=== PATIENT | female | born 1935 | race Two or more races ===

== ENCOUNTER 2018-03-02 14:21 | Emergency (ER) | payer MEDICARE, OTHER ==
[~2018-03-02] VITALS: Ht 157.5 cm; Wt 59.0 kg
[2018-03-02] MEDS ORDERED: BENZONATATE 100 MG CAPSULE. PO ONE (15:00)
[2018-03-02] MEDS ORDERED: ACETAMINOPHEN 500 MG TABLET PO ONE (15:00)
[2018-03-02] MEDS ORDERED: VANCOMYCIN PER PHARMACY MC ONE (15:00)
[2018-03-02] MEDS ORDERED: IPRATRPIUM/ALBUTEROL 0.5/2.5MG 3 ML NEBU. NEB ONE (15:00)
[2018-03-02] MEDS ORDERED: methylPREDNISolone SOD SUCC PF 125 MG/2 ML VIAL. IV ONE (15:00)
[2018-03-02] MEDS ORDERED: PIPERACILLIN/TAZOBACTAM 4.5 GM in IV NORMAL SALINE 100ML 100 ML IV ONE (15:15)
[2018-03-02] MEDS ORDERED: IV NORMAL SALINE 1000ML BAG 1,000 ML IV SCH (15:15)
[2018-03-02] MEDS ORDERED: VANCOMYCIN 1.5 GM in IV NORMAL SALINE 500ML BAG 500 ML IV ONE (15:15)
[2018-03-02 15:16] LABS: BASO # 0.1 x10^3/uL (0.0-0.2); BASO % 1 % (0-3); EOS # 0.1 x10^3/uL (0.0-0.7); EOS % 1 % (0-3); HEMATOCRIT 36.5 % (36.0-47.0); HEMOGLOBIN 12.8 g/dL (12.0-15.5); LYMPH # 1.5 x10^3/uL (1.0-4.8); LYMPH % 17 % (24-48); MEAN CORPUSCULAR HEMOGLOBIN 31 pg (25-35); MEAN CORPUSCULAR HGB CONC 35 g/dL (31-37); MEAN CORPUSCULAR VOLUME 89 fL (79-100); MONO # 0.8 x10^3/uL (0.0-1.1); MONO % 9 % (0-9); NEUT # 6.4 x10^3uL (1.8-7.7); NEUT % 73 % (31-73); PLATELET COUNT 307 x10^3/uL (140-400); RED BLOOD COUNT 4.09 x10^6/uL (3.50-5.40); RED CELL DISTRIBUTION WIDTH 13.3 % (11.5-14.5); WHITE BLOOD COUNT 8.8 x10^3/uL (4.0-11.0)
--- NOTE | 2018-03-02 15:24 | RAD ---
Indication:COUGH X2 MONTH OFF AND ON TECHNIQUE:Portable AP chest X-ray COMPARISON:08/15/2011 FINDINGS: Heart is normal in size. patchy opacity in the left lung base. No pneumothorax or pleural effusion. Visualized bony thorax within normal limits. IMPRESSION: Left lung base/in the findings may be secondary to scarring, subsegmental atelectasis, aspiration or pneumonia. Electronically signed by: Chester Gregory DO (03/02/2018 3:20 PM) [id number]
[2018-03-02 15:38] LABS: CALCIUM 9.3 mg/dL (8.5-10.1); CREATININE 0.8 mg/dL (0.6-1.0); GFR 68.8
[2018-03-02 15:44] LABS: ALBUMIN 3.6 g/dL (3.4-5.0); ALBUMIN/GLOBULIN RATIO 0.8 (1.0-1.7); TOTAL BILIRUBIN 0.3 mg/dL (0.2-1.0); TOTAL PROTEIN 7.9 g/dL (6.4-8.2)
--- NOTE | 2018-03-02 15:47 | EKG ---
[facility] [address] [place] [address] Test Date: 2018-03-02 Test Time: 15:19:25 Pat Name: CHRISTIAN HERNANDEZ Department: Room: Gender: F [employer] Services [employer]: : [id number] Requested By: JENNIE PONCE Order Number: [id number] Reading MD: Measurements Intervals [place] Rate: 92 P: 28 CO: 138 QRS: -6 QRSD: 82 T: 48 QT: 344 QTc: 430 Interpretive Statements SINUS RHYTHM ATRIAL PREMATURE COMPLEX(ES) LEFTWARD AXIS QRS(T) CONTOUR ABNORMALITY CONSIDER ANTEROSEPTAL MYOCARDIAL DAMAGE POSSIBLY ABNORMAL ECG RI6.01 No previous ECG available for comparison
--- NOTE | 2018-03-02 16:16 | PHYS DOC ---
Past Medical History Past Medical History: Arthritis, Depression, High Cholesterol Past Surgical History: Appendectomy Alcohol Use: None Drug Use: None Adult General Chief Complaint Chief Complaint: COUGH HPI HPI Patient is a 82 year old female with a history of depression, hypertension, high cholesterol, who presents today complaining of a productive cough for 1 week. Patient denies any fever. Patient denies any chest pain or shortness of breath. She is actively coughing on arrival to the room. Patient is Portuguese- speaking and interpretation is provided by the son. Review of Systems Review of Systems Constitutional: Denies fever or chills [] Eyes: Denies change in visual acuity, redness, or eye pain [] HENT: Denies nasal congestion or sore throat [] Respiratory: Reports cough, denies shortness of breath [] Cardiovascular: No additional information not addressed in HPI [] GI: Denies abdominal pain, nausea, vomiting, bloody stools or diarrhea [] : Denies dysuria or hematuria [] Musculoskeletal: Denies back pain or joint pain [] Integument: Denies rash or skin lesions [] Neurologic: Denies headache, focal weakness or sensory changes [] All other systems were reviewed and found to be within normal limits, except as documented in this note. Current Medications Current Medications Current Medications Medications (Trade) Dose Ordered Sig/Reggie Start Time Stop Time Status Last Admin Dose Admin Acetaminophen (Tylenol) 1,000 mg 1X ONCE 03/02/18 15:00 03/02/18 15:08 DC 03/02/18 15:12 1,000 MG Albuterol/ Ipratropium (Duoneb) 3 ml 1X ONCE 03/02/18 15:00 03/02/18 15:08 DC 03/02/18 15:16 3 ML Benzonatate (Tessalon Perle) 100 mg 1X ONCE 03/02/18 15:00 03/02/18 15:08 DC 03/02/18 15:12 100 MG Methylprednisolone Sodium Succinate (SOLU-Medrol 125MG VIAL) 125 mg 1X ONCE 03/02/18 15:00 03/02/18 15:08 DC 03/02/18 15:12 125 MG Piperacillin Sod/ Tazobactam Sod 4.5 gm/Sodium Chloride 100 ml @ 200 mls/hr 1X ONCE 03/02/18 15:15 03/02/18 15:44 DC 03/02/18 15:37 200 MLS/HR Sodium Chloride 1,000 ml @ 1,500 mls/hr Q40M 03/02/18 15:15 03/02/18 16:14 DC 03/02/18 15:15 1,500 MLS/HR Vancomycin HCl (Vanco Per Pharmacy) 1 each 1X ONCE 03/02/18 15:00 03/02/18 15:08 DC Vancomycin HCl 1.5 gm/Sodium Chloride 500 ml @ 250 mls/hr 1X ONCE 03/02/18 15:15 03/02/18 17:14 03/02/18 15:15 250 MLS/HR Allergies Allergies Allergies Coded Allergies Type Severity Reaction Last Updated Verified No Known Drug Allergies 03/02/18 No Physical Exam Physical Exam Constitutional: Well developed, well nourished, no acute distress, non-toxic appearance. [] HENT: Normocephalic, atraumatic, bilateral external ears normal, oropharynx moist, no oral exudates, nose normal. [] Eyes: PERRLA, EOMI, conjunctiva normal, no discharge. [] Neck: Normal range of motion, no tenderness, supple, no stridor. [] Cardiovascular:Heart rate regular rhythm, no murmur [] Lungs & Thorax: Patient is actively coughing in the room. Abdomen: Bowel sounds normal, soft, no tenderness, no masses, no pulsatile masses. [] Skin: Warm, dry, no erythema, no rash. [] Back: No tenderness, no CVA tenderness. [] Extremities: No tenderness, no cyanosis, no clubbing, ROM intact, no edema. [] Neurologic: Alert and oriented X 3, normal motor function, normal sensory function, no focal deficits noted. [] Psychologic: Affect normal, judgement normal, mood normal. [] Current Patient Data Vital Signs Vital Signs Date Time Temp Pulse Resp B/P (MAP) Pulse Ox O2 Delivery O2 Flow Rate FiO2 03/02/18 15:16 99 Room Air 03/02/18 14:44 99.9 112 16 162/70 (100) 99.9 Lab Values Laboratory Tests Test 03/02/18 15:00 03/02/18 15:30 03/02/18 16:09 White Blood Count 8.8 x10^3/uL (4.0-11.0) Red Blood Count 4.09 x10^6/uL (3.50-5.40) Hemoglobin 12.8 g/dL (12.0-15.5) Hematocrit 36.5 % (36.0-47.0) Mean Corpuscular Volume 89 fL (79-100) Mean Corpuscular Hemoglobin 31 pg (25-35) Mean Corpuscular Hemoglobin Concent 35 g/dL (31-37) Red Cell Distribution Width 13.3 % (11.5-14.5) Platelet Count 307 x10^3/uL (140-400) Neutrophils (%) (Auto) 73 % (31-73) Lymphocytes (%) (Auto) 17 % (24-48) L Monocytes (%) (Auto) 9 % (0-9) Eosinophils (%) (Auto) 1 % (0-3) Basophils (%) (Auto) 1 % (0-3) Neutrophils # (Auto) 6.4 x10^3uL (1.8-7.7) Lymphocytes # (Auto) 1.5 x10^3/uL (1.0-4.8) Monocytes # (Auto) 0.8 x10^3/uL (0.0-1.1) Eosinophils # (Auto) 0.1 x10^3/uL (0.0-0.7) Basophils # (Auto) 0.1 x10^3/uL (0.0-0.2) Sodium Level 135 mmol/L (136-145) L Potassium Level 4.0 mmol/L (3.5-5.1) Chloride Level 100 mmol/L (98-107) Carbon Dioxide Level 28 mmol/L (21-32) Anion Gap 7 (6-14) Blood Urea Nitrogen 12 mg/dL (7-20) Creatinine 0.8 mg/dL (0.6-1.0) Estimated GFR (Cockcroft-Gault) 68.8 BUN/Creatinine Ratio 15 (6-20) Glucose Level 114 mg/dL (70-99) H Lactic Acid Level 1.0 mmol/L (0.4-2.0) Calcium Level 9.3 mg/dL (8.5-10.1) Total Bilirubin 0.3 mg/dL (0.2-1.0) Aspartate Amino Transferase (AST) 21 U/L (15-37) Alanine Aminotransferase (ALT) 19 U/L (14-59) Alkaline Phosphatase 83 U/L (46-116) Total Protein 7.9 g/dL (6.4-8.2) Albumin 3.6 g/dL (3.4-5.0) Albumin/Globulin Ratio 0.8 (1.0-1.7) L Influenza Type A Antigen Negative (NEGATIVE) Influenza Type B Antigen Negative (NEGATIVE) Urine Collection Type Unknown Urine Color Yellow Urine Clarity Clear Urine pH 7.5 Urine Specific [place] <=1.005 Urine Protein Negative mg/dL (NEG-TRACE) Urine Glucose (UA) Negative mg/dL (NEG) Urine Ketones (Stick) Negative mg/dL (NEG) Urine Blood Negative (NEG) Urine Nitrite Negative (NEG) Urine Bilirubin Negative (NEG) Urine Urobilinogen Dipstick 0.2 mg/dL (0.2 mg/dL) Urine Leukocyte Esterase Negative (NEG) Urine RBC 0 /HPF (0-2) Urine WBC 0 /HPF (0-4) Urine Squamous Epithelial Cells Few /LPF Urine Bacteria 0 /HPF (0-FEW) Laboratory Tests 03/02/18 15:00 Laboratory Tests 03/02/18 15:00 EKG EKG 15:[address] Talamantes sinus rhythm heart rate 92 no STEMI[] Radiology/Procedures Radiology/Procedures []PROCEDURE: PORTABLE CHEST 1V Indication:COUGH X2 MONTH OFF AND ON TECHNIQUE:Portable AP chest X-ray COMPARISON:08/15/2011 FINDINGS: Heart is normal in size. patchy opacity in the left lung base. No pneumothorax or pleural effusion. Visualized bony thorax within normal limits. IMPRESSION: Left lung base/in the findings may be secondary to scarring, subsegmental atelectasis, aspiration or pneumonia. Electronically signed by: Chester Ballesteros DO (03/02/2018 3:20 PM) [id number] DICTATED and SIGNED BY: CHESTER BALLESTEROS DO DATE: 03/02/18 1519 Course & Med Decision Making Course & Med Decision Making Pertinent Labs and Imaging studies reviewed. (See chart for details) This is a 82-year-old female patient presented to the ED today with a cough for 1 week. CBC with a normal WBC, CMP with no acute findings. Vitals on arrival to the ED temperature 99.1 heart rate 112 respirations 16 on room air blood pressure 162/70 O2 sats 98% on room air. Patient was started on sepsis protocol including Zosyn and vancomycin. Chest x-ray interpreted by radiologist was noted for -Left lung base/in the findings may be secondary to scarring, subsegmental atelectasis, aspiration or pneumonia. Offered patient admission to the hospital, she declined. She is requesting to be discharged with oral antibiotics. Prescription for Levaquin given. She has good follow-up. Requested she sees her PCP in the next 3 days. Instructed to return to the ED at any point symptoms worsen. Dragon Disclaimer Dragon Disclaimer This electronic medical record was generated, in whole or in part, using a voice recognition dictation system. Departure Departure Impression: Primary Impression: Pneumonia Additional Impressions: Fever Tachycardia Disposition: 01 HOME, SELF-CARE Condition: STABLE Referrals: NON,STAFF (PCP) follow up with your doctor next week Patient Instructions: Pneumonia, Adult Additional Instructions: You were evaluated and noted to have pneumonia. Complete your antibiotics. Follow up with your doctor in the next 3 days. Come back to the ED at any point symptoms worsen. Scripts Promethazine Hcl/Codeine (PROMETHAZINE-CODEINE SYRUP) 118 Ml Syrup 5 ML PO Q4-6HRS, #120 ML Prov: JENNIE PONCE BUS INSPECTOR 03/02/18 Levofloxacin (LEVAQUIN) 500 Mg Tablet 1 TAB PO DAILY, #7 TAB Prov: JENNIE PONCE APRN 03/02/18 Problem Qualifiers Primary Impression: Pneumonia Pneumonia type: due to unspecified organism Laterality: left Lung location : lower lobe of lung Qualified Codes: J18.1 - Lobar pneumonia, unspecified organism Additional Impressions: Fever Fever type: unspecified Qualified Codes: R50.9 - Fever, unspecified JENNIE PONCE BUS INSPECTOR Mar 02, 2018 16:16
[2018-03-02 16:25] LABS: BILIRUBIN,URINE NEGATIVE (NEG); CLARITY,URINE CLEAR; COLOR,URINE YELLOW; NITRITE,URINE NEGATIVE (NEG); PH,URINE 7.5; PROTEIN,URINE NEGATIVE (NEG-TRACE); UROBILINOGEN,URINE 0.2 mg/dL (0.2 mg/dL)
[2018-03-02 16:33] LABS: BACTERIA,URINE 0 /HPF (0-FEW); RBC,URINE 0 /HPF (0-2); SQUAMOUS EPITHELIAL CELL,UR FEW /LPF; WBC,URINE 0 /HPF (0-4)
[2018-03-02 16:39] LABS: INFLUENZA A PATIENT NEGATIVE (NEGATIVE); INFLUENZA B PATIENT NEGATIVE (NEGATIVE)
[2018-03-02] MEDS ORDERED: LEVO500T59 PO (17:18)
[2018-03-02] MEDS ORDERED: PROM118S5 PO (17:18)
[2018-03-02 18:00] VITALS: BP 157/57
--- NOTE | 2018-03-09 11:05 | NUR ---
Late entry made to Medical Record. IV Stop time transcribed from eMAR to IV spreadsheet
== END 2018-03-02 18:21 | disposition home or self-care (01) ==
LOC: ER 14:21
DX: J18.1 Lobar pneumonia, unspecified organism (principal); R00.0 Tachycardia, unspecified; E78.00 Pure hypercholesterolemia, unspecified; I10 Essential (primary) hypertension
CPT/HCPCS: 36415; 71045; 80053; 81001; 83605; 85025; 87040; 87804; 93005; 94640; 96365; 96366; 96368; 96375; 99284; J2543; J2930; J3370; J7030; J7040; J7620